=== PATIENT | female | born 1980 | race African-American/Black ===

== ENCOUNTER 2018-12-27 11:22 | Emergency (ER) | payer MEDICAID ==
[~2018-12-27] VITALS: Ht 157.5 cm; Wt 68.0 kg
--- NOTE | 2018-12-27 11:26 | NUR ---
PT BIB [facility] FROM [facility]. PER REPORT, PT IS C/O ABDOMINAL PAIN W/ NAUSEA AND VOMITING. UPON INITIAL ASSESSMENT PT DENIES PAIN AT THIS TIME STATING " I HAVE A FLU FOR THE PAST COUPLE DAYS. VSS. AWAITING MD CHA.
--- NOTE | 2018-12-27 11:30 | NUR ---
DR VENTURA AT BEDSIDE FOR EVAL.
--- NOTE | 2018-12-27 11:40 | NUR ---
PT IS REFUSING BLOOD DRAW. DR VENTURA MADE AWARE.
--- NOTE | 2018-12-27 11:56 | NUR ---
Patient does not wish to proceed with medical care recommended by Dr. Toledo. Patient given information related to possible complications, up to and including , which could occur as a result of leaving the hospital at this time. Patient verbalizes understanding of risks involved due to leaving against medical advice. Patient has signed AMA form. was provided w/ meal, Pt provided w/ Tap card for transport.
[2018-12-27 11:59] VITALS: BP 145/77
== END 2018-12-27 12:00 | disposition left against medical advice (07) ==
LOC: ER 11:29
DX: R10.9 Unspecified abdominal pain (principal); Z88.8 Allergy status to other drugs, medicaments and biological substances

== ENCOUNTER 2019-02-08 00:59 | Emergency (ER) | payer MEDICAID, OTHER ==
[~2019-02-08] VITALS: Ht 160 cm; Wt 86.2 kg
--- NOTE | 2019-02-08 01:00 | NUR ---
TO ER BED 14 AMBULATORY C/O SI "I PLAN TO TAKE ALL MY TYLENOL & I AM VERY EMTIONAL RIGHT NOW" DENIES HI. PT AAOX4 NO ACUTE DISTRESS NOTED, RESP EVEN AND UNLABORED. PT DENIES PAIN OR DISCOMFORT AT THIS TIME. PT CALM AND COOPERATIVE AT THIS TIME. PLACE PT ON HOSPITAL GOWN, ALL BELONGINGS REMOVED FROM ROOM AND PLACED IN HOSPITAL LOCKED LOCKER. 1:1 SITTER AT BEDSIDE. PT UNABLE TOP PROVIDE URINE SAMPLE AT THIS TIME.
--- NOTE | 2019-02-08 01:07 | NUR ---
[employer] SUPERINTENDENT AT BEDSIDE FOR BLOOD DRAW.
--- NOTE | 2019-02-08 01:12 | NUR ---
BLOOD DRAW AND SENT TO LAB. PT STILL UNABLE TO PROVIDE URINE SAMPLE AT THIS TIME.
[2019-02-08 01:18] LABS: EOSINOPHILS % (AUTO) 1.3 % (0.0-6.0)
[2019-02-08 01:21] LABS: BASOPHILS # (AUTO) 0.1 /CMM (0.0-0.2); BASOPHILS % (AUTO) 0.6 % (0.0-2.0); HEMATOCRIT 37 % (33-45); LYMPHOCYTES # (AUTO) 4.5 /CMM (0.8-4.8); LYMPHOCYTES % (AUTO) 26.5 % (20.0-44.0); MEAN CORPUSCULAR HGB CONC 32 g/dl (31.0-36.0); MEAN CORPUSCULAR VOLUME 83 fL (82-100); MONOCYTES % (AUTO) 5.7 % (2.0-12.0); NEUTROPHILS # (AUTO) 11.1 /CMM (1.8-8.9); NEUTROPHILS % (AUTO) 65.9 % (43.0-81.0); PLATELET COUNT (AUTO) 347 /CMM (150-450); RED BLOOD CELL COUNT(AUTO) 4.47 MIL/uL (4.0-5.2); WHITE BLOOD COUNT (AUTO) 16.8 K/uL (4.3-11.0)
[2019-02-08 01:26] LABS: CALCIUM, SERUM 9.3 mg/dL (8.5-10.1); CARBON DIOXIDE 27 mmol/L (21-32); CHLORIDE 100 mmol/L (98-107); CREATININE 0.8 mg/dL (0.6-1.3); GLUCOSE 90 mg/dL (74-106); POTASSIUM 4.2 mmol/L (3.5-5.1); SODIUM SERUM 135 mmol/L (136-145); UREA NITROGEN, BLOOD 19 mg/dL (7-18)
[2019-02-08 01:31] LABS: ACETAMINOPHEN 1 ug/ml (10-30); ALANINE AMINOTRANSFERASE 19 U/L (12-78); ALBUMIN 3.3 g/dL (3.4-5.0); ALCOHOL, BLOOD < 3 mg/dL (0-0); ALKALINE PHOSPHATASE 93 U/L (46-116); ASPARTATE AMINOTRANSFERASE 12 U/L (15-37); BILIRUBIN,TOTAL 0.1 mg/dL (0.2-1.0); SALICYLATE 2.6 mg/dL (2.8-20.0); TOTAL PROTEIN, SERUM 7.4 g/dL (6.4-8.2)
--- NOTE | 2019-02-08 03:03 | NUR ---
URINE COLLECTED AND SENT TO LAB
[2019-02-08 03:11] LABS: APPEARANCE,URINE Clear (CLEAR); BILIRUBIN,URINE Negative (NEGATIVE); BLOOD, URINE Negative Ery/uL (NEGATIVE); COLOR,URINE Yellow (YELLOW); KETONES,URINE Negative (NEGATIVE); LEUKOCYTE ESTERASE ,URINE Trace (NEGATIVE); NITRITE, URINE Negative (NEGATIVE); PH,URINE 6.5 (5.0-8.0); PROTEIN,URINE Negative (NEGATIVE); UGLUCOSE Negative (NEGATIVE); UROBILINOGEN,URINE 0.2 EU/dL (0.2)
--- NOTE | 2019-02-08 04:21 | NUR ---
Pt accepted to [facility] by Dr Mathias. # for report [phone]
[2019-02-08 04:34] LABS: BACTERIA,URINE Few /HPF (None Seen); RBC,URINE 0-2 /HPF (0-2); SQUAMOUS EPITHELIAL CELL,UR Few /HPF (None Seen)
--- NOTE | 2019-02-08 04:41 | NUR ---
[facility] CALLED FOR S TRANSPORT. #[id number]. #[phone]
--- NOTE | 2019-02-08 05:41 | NUR ---
[facility] ETA [id number]
--- NOTE | 2019-02-08 05:45 | NUR ---
REPORT GIVEN TO VIOLETTA BERG FOR CONTINUATION OF CARE.
--- NOTE | 2019-02-08 06:20 | NUR ---
[facility] AT BEDSIDE FOR TRANSPORT TO [facility]. PT REFUSING TO GO TO [facility]. PT DENYING SI/HI. PT OK TO BE DISCHARGED PER DR PEREZ.
[2019-02-08 06:47] VITALS: BP 128/75
== END 2019-02-08 06:47 | disposition home or self-care (01) ==
LOC: EDBD 01:01 → ER 01:01
DX: R45.851 Suicidal ideations (principal); F20.9 Schizophrenia, unspecified; F17.200 Nicotine dependence, unspecified, uncomplicated; Z88.8 Allergy status to other drugs, medicaments and biological substances
CPT/HCPCS: 36415; 80048; 80076; 80305; 80307; 80329; 81001; 84703; 85025; 87086; 99284; G0480; 81000-TC

== ENCOUNTER 2019-04-01 21:35 | Emergency (ER) | payer OTHER ==
[~2019-04-01] VITALS: Ht 162.6 cm; Wt 65.8 kg
--- NOTE | 2019-04-01 21:41 | NUR ---
[facility] 881 FOR [facility]. PICKED UP FROM [facility], PT TO BED 15, PT NOTED WITH [facility], PT IS COOPERATIVE WITH STAFF, PT ON MONITOR, SITTER AT BEDSIDE
[2019-04-01 23:05] LABS: BASOPHILS # (AUTO) 0.1 /CMM (0.0-0.2); BASOPHILS % (AUTO) 0.6 % (0.0-2.0); EOSINOPHILS % (AUTO) 2.1 % (0.0-6.0); HEMATOCRIT 35 % (33-45); HEMOGLOBIN 11.5 g/dL (11.5-14.8); LYMPHOCYTES # (AUTO) 4.3 /CMM (0.8-4.8); LYMPHOCYTES % (AUTO) 35.1 % (20.0-44.0); MEAN CORPUSCULAR HGB CONC 33 g/dl (31.0-36.0); MEAN CORPUSCULAR VOLUME 83 fL (82-100); MONOCYTES # (AUTO) 0.8 /CMM (0.1-1.30); MONOCYTES % (AUTO) 6.2 % (2.0-12.0); NEUTROPHILS # (AUTO) 6.8 /CMM (1.8-8.9); PLATELET COUNT (AUTO) 309 /CMM (150-450); WHITE BLOOD COUNT (AUTO) 12.2 K/uL (4.3-11.0)
--- NOTE | 2019-04-01 23:10 | NUR ---
URINE COLLECTED AND SENT TO LAB
[2019-04-01 23:11] LABS: APPEARANCE,URINE Clear (CLEAR); BILIRUBIN,URINE Negative (NEGATIVE); BLOOD, URINE Negative Ery/uL (NEGATIVE); COLOR,URINE Yellow (YELLOW); KETONES,URINE Negative (NEGATIVE); LEUKOCYTE ESTERASE ,URINE Negative (NEGATIVE); NITRITE, URINE Negative (NEGATIVE); PROTEIN,URINE Negative (NEGATIVE); UGLUCOSE Negative (NEGATIVE)
[2019-04-01 23:17] LABS: CALCIUM, SERUM 8.7 mg/dL (8.5-10.1); CARBON DIOXIDE 32 mmol/L (21-32); CHLORIDE 104 mmol/L (98-107); CREATININE 0.9 mg/dL (0.6-1.3); GLUCOSE 83 mg/dL (74-106); POTASSIUM 4.7 mmol/L (3.5-5.1); SODIUM SERUM 141 mmol/L (136-145); UREA NITROGEN, BLOOD 12 mg/dL (7-18)
[2019-04-01 23:33] LABS: ALANINE AMINOTRANSFERASE 19 U/L (12-78); ALBUMIN 3.2 g/dL (3.4-5.0); ALCOHOL, BLOOD < 3 mg/dL (0-0); ALKALINE PHOSPHATASE 92 U/L (46-116); ASPARTATE AMINOTRANSFERASE 13 U/L (15-37); BILIRUBIN,DIRECT 0.1 mg/dL (0.0-0.2); BILIRUBIN,TOTAL 0.2 mg/dL (0.2-1.0); SALICYLATE 3.9 mg/dL (2.8-20.0); TOTAL PROTEIN, SERUM 6.9 g/dL (6.4-8.2)
[2019-04-01 23:34] LABS: ACETAMINOPHEN 0 ug/ml (10-30)
--- NOTE | 2019-04-01 23:49 | NUR ---
Patient is resting comfortably in bed with eyes closed. Easily aroused. VSS
--- NOTE | 2019-04-02 05:15 | NUR ---
PT AWAKE, AAOX4. NOW C/O SUICIDAL IDEATION. DENIES HI AT THIS TIME. MD AWARE, SITTER AT BEDSIDE.
--- NOTE | 2019-04-02 05:30 | NUR ---
CLINICAL INFORMATION FAXED TO [facility]
--- NOTE | 2019-04-02 06:21 | NUR ---
PT ACCEPTED TO [facility] ACCEPTING MD: DR. BROWNING NUMBER FOR REPORT: [phone] EXT [phone]
--- NOTE | 2019-04-02 06:41 | NUR ---
arranged bls transport with nate bartlett [phone]
--- NOTE | 2019-04-02 06:48 | NUR ---
REPORT GIVEN TO ELINA BERG FROM [facility]
[2019-04-02 09:11] VITALS: BP 121/81
== END 2019-04-02 09:18 | disposition home or self-care (01) ==
LOC: ER 21:35
DX: F15.10 Other stimulant abuse, uncomplicated (principal); F20.9 Schizophrenia, unspecified; F17.200 Nicotine dependence, unspecified, uncomplicated; Z88.8 Allergy status to other drugs, medicaments and biological substances; Z59.0 Homelessness
CPT/HCPCS: 36415; 80048; 80076; 80305; 80307; 80329; 81001; 84702; 85025; 99285; G0480; 81000-TC

== ENCOUNTER 2019-04-02 12:20 | Emergency (ER) | payer OTHER ==
--- NOTE | 2019-04-02 12:26 | NUR ---
CALLED IN WAITING ROOM. NO REPLY.
--- NOTE | 2019-04-02 12:32 | NUR ---
CALLED IN ED. NO RESPONSE.
--- NOTE | 2019-04-02 12:53 | NUR ---
PT LEFT ED W/OUT BEING TRIAGED.
== END 2019-04-02 12:55 | disposition left against medical advice (07) ==
LOC: ER 12:20
DX: Z53.21 Procedure and treatment not carried out due to patient leaving prior to being seen by health care provider (principal); M79.10 Myalgia, unspecified site